=== PATIENT | male | born 1965 | race Caucasian/White ===

== ENCOUNTER 2018-02-06 11:46 | Emergency (ER) | payer BC ==
[2018-02-06] MEDS ORDERED: METHYLPREDNISOLONE 125 MG INJ ONE (11:59)
[2018-02-06] MEDS ORDERED: FAMOTIDINE 20 MG/2 ML VIAL IV ONE (12:00)
[2018-02-06 12:54] LABS: Absolute Lymphocytes (CBC) 1.4 K/uL (0.7-4.9); Absolute Monocytes 0.3 K/uL (0.1-1.3); Absolute Neutrophil 5.9 K/uL (1.8-8.0); Basophils % 0.4 % (0-1.3); Eosinophils % 0.8 % (0-4.4); Hematocrit 43.9 % (39.6-49.0); Lymphocytes % 18.1 % (15.3-44.8); MCH 28.4 pg (27.0-35.0); MCV 84.9 fL (80-100); MPV 7.9 fL (7.6-11.3); Monocytes % 3.5 % (3.3-12.3); RBC Red Blood Cell Count 5.17 M/uL (4.33-5.43)
[2018-02-06 13:11] LABS: Potassium 3.6 mEq/L (3.6-5.0)
--- NOTE | 2018-02-06 15:24 | EKG ---
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
--- NOTE | 2018-02-06 15:49 | ER ---
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 Transition of care: patient was not received from another setting of care. Onset: The symptoms/episode began/occurred acutely, 30 minute(s) ago. Anaphylaxis evaluation, the patient reports or I have noted the following symptoms which indicate a significant risk of anaphylaxis: angioedema hypotension lightheadedness shortness of breath tachypnea urticaria . The patient has been moved to a treatment room and the charge nurse or attending physician has been notified. Onset of symptoms was February 06, 2018. Initial Sepsis Screen: Does the patient meet any 2 criteria? No. Patient's initial sepsis screen is negative. Does the patient have a suspected source of infection? No. Patient's initial sepsis screen is negative. Care prior to arrival: Medication(s) given: Benadryl 50 mg pt reports taking prior to EMS arrival, EMS administered IM epinephrine CAR SUPERVISOR IV initiated. 18 GA, in the left wrist, Med neb given. Oxygen administered. 11:49 Method Of Arrival: EMS: [facility] sg 11:49 Acuity: DEWEY 2 sg Historical: - Allergies: 11:54 No Known Allergies; sg - Home Meds: 11:54 Propranolol Oral [Active]; Primidone Oral [Active]; sg - PMHx: 11:54 Hypertension; sg - Immunization history:: Adult Immunizations unknown. - Social history:: Smoking status: Patient/guardian denies using tobacco. Screenin:45 Abuse screen: Denies threats or abuse. Denies injuries from another. Nutritional sg screening: No deficits noted. Tuberculosis screening: No symptoms or risk factors identified. Never had TB. Fall Risk None identified. Assessment: 11:45 General: Appears in no apparent distress. comfortable, well groomed, well developed, sg well nourished, Behavior is calm, cooperative, appropriate for age. Pain: Denies pain. Neuro: Level of Consciousness is awake, alert, obeys commands, Oriented to person, place, time, situation, Supervisor Smoke Control are equal bilaterally Moves all extremities. Full function Gait is steady, Speech is normal, Facial symmetry appears normal, Denies weakness blurred vision dizziness, difficulty swallowing, numbness headache photophobia. Cardiovascular: Heart tones S1 S2 present Capillary refill is brisk in bilateral fingers Patient's skin is warm and dry. Chest pain is denied. Respiratory: Airway is patent Respiratory effort is even, unlabored, Respiratory pattern is regular, symmetrical, Breath sounds with wheezes. GI: No signs and/or symptoms were reported involving the gastrointestinal system. Abdomen is round non-distended, Bowel sounds present X 4 quads. Abd is soft and non tender X 4 quads. : No signs and/or symptoms were reported regarding the genitourinary system. EENT: No signs and/or symptoms were reported regarding the EENT system. Derm: Skin is pink, warm \T\ dry. Rash noted that is macular, itchy, red, urticaria, to face, chest, arms and legs. Musculoskeletal: No signs and/or symptoms reported regarding the musculoskeletal system. 11:50 Reassessment: stinger removed from pt R eyebrow, no other stingers observed at this sg time. 12:33 Reassessment: attempt to draw blood from current IV in Left wrist, unsuccessful. will sg attempt lab draw at this time. 13:25 Reassessment: Patient appears in no apparent distress at this time. Patient and/or sg family updated on plan of care and expected duration. Pain level reassessed. Patient is alert, oriented x 3, equal unlabored respirations, skin warm/dry/pink. pt reports feeling hungry at this time, updated on lab results and awaiting new orders, awaiting dispo orders at this time Patient states feeling better. Vital Signs: 11:50 Weight 113.4 kg (R); sg 11:52 BP 149 / 100; Pulse 54; Resp 21; Pulse Ox 93% on 100% Nebulizer Mask; Pain 7/10; sg 12:00 Temp 97.9; sg 12:10 BP 132 / 90; Pulse 59; Resp 20 S; Pulse Ox 91% on R/A; sg 12:15 Pulse Ox 96% on 3 lpm NC; sg 13:06 BP 158 / 92; Pulse 60 MON; Resp 20 S; Pulse Ox 96% on 3 lpm NC; sg 12:10 pt placed to O2 via NC at 3 lpm, 02 increased to 97 % sg ED Course: 11:49 Patient arrived in ED. sg 11:49 Omari Lewis MD is Attending Physician. gs 11:50 Noe Perez [facility]. jr8 11:50 Patient has correct armband on for positive identification. Bed in low position. Call sg light in reach. Side rails up X2. air sampling and monitoring on. Pulse ox on. NIBP on. Verbal reassurance given. blanket given Head of bed elevated. 11:52 Triage completed. sg 11:52 Arm band placed on. sg 11:55 Duy Sawyer, RN is Primary Nurse. sg 12:16 EKG done, by patient safety tech. reviewed by Noe POLLOCK. at1 16:25 No provider procedures requiring assistance completed. sg 16:28 IV discontinued, intact, bleeding controlled, No redness/swelling at site. Pressure sg dressing applied. Administered Medications: 11:55 Drug: NS 0.9% 1000 ml Route: IV; Rate: 1000 ml; Site: left wrist; sg 13:00 Follow up: Response: No adverse reaction; IV Status: Completed infusion; IV Intake: sg 990ml 12:08 Drug: Pepcid 20 mg Route: IVP; Site: left wrist; sg 13:00 Follow up: Response: No adverse reaction; Marked relief of symptoms sg 12:08 Drug: SOLU-Medrol 125 mg Route: IVP; Site: left wrist; sg 13:00 Follow up: Response: No adverse reaction; Marked relief of symptoms sg Intake: 13:00 IV: 990ml; Total: 990ml. sg Outcome: 15:49 Discharge ordered by . jr8 16:28 Discharged to home ambulatory, with family. sg 16:28 Condition: good 16:28 Discharge instructions given to patient, family, Instructed on discharge instructions, follow up and referral plans. medication usage, safety practices, Demonstrated understanding of instructions, follow-up care, medications, Prescriptions given X 2. 16:31 Patient left the ED. Signatures: Duy Sawyer RN RN sg Smirch, Shelby, RN RN Noe Perez PA PA jr8 gonzales, Amanda, ferryboat operator helper EKG Tat1 Omari Lewis MD MD gs Corrections: (The following items were deleted from the chart) 12:16 12:15 EKG done, by patient safety tech. reviewed by Omari Lewis MD at1 at1 13:24 13:06 BP 125 / 74; Pulse 60bpm; MonitorResp 20bpm; Spontaneous; Pulse Ox 96% 3 lpm sg Nasal Cannula; sg 19:27 16:28 Discharge instructions given to patient, family, Instructed on discharge sg instructions, follow up and referral plans. medication usage, safety practices, Demonstrated understanding of instructions, follow-up care, medications, Prescriptions given X 3, sg
--- NOTE | 2018-02-06 15:49 | EDPHYS ---
Physician Documentation [facility] Name: Frederick Galleogs Age: 52 yrs Sex: Male : 1965 Arrival Date: 02/06/2018 Time: 11:49 Bed 8 Private MD: ED Physician Omari Lewis HPI: 02/06 12:28 This 52 yrs old Male presents to ER via EMS with complaints of Allergic jr8 Reaction. 12:28 The patient presents with itching, rash, shortness of breath, stridor, wheezing. Onset: jr8 The symptoms/episode began/occurred acutely, today. Associated signs and symptoms: Pertinent positives: chest pain. Possible causes: bees. At home the patient or guardian has treated the symptoms with Benadryl. Severity of symptoms: At their worst the symptoms were severe in the emergency department the symptoms have improved markedly. The patient has not experienced similar symptoms in the past. The patient has not recently seen a physician. Patient brought in by EMS after being bit by bees. Had taken benadryl without relief. Patient was hypotensive with stridor, rash, and difficulty breathing on scene. Given IM epinephrine and SONDRA treatment. Patient upon arrival to ED feeling much better. No acute distress . Historical: - Allergies: 11:54 No Known Allergies; sg - Home Meds: 11:54 Propranolol Oral [Active]; Primidone Oral [Active]; sg - PMHx: 11:54 Hypertension; sg - Immunization history:: Adult Immunizations unknown. - Social history:: Smoking status: Patient/guardian denies using tobacco. ROS: 12:28 Eyes: Negative for injury, pain, redness, and discharge, ENT: Negative for injury, jr8 pain, and discharge, Neck: Negative for injury, pain, and swelling, Cardiovascular: Negative for chest pain, palpitations, and edema, Abdomen/GI: Negative for abdominal pain, nausea, vomiting, diarrhea, and constipation, Back: Negative for injury and pain, MS/Extremity: Negative for injury and deformity, Neuro: Negative for headache, weakness, numbness, tingling, and seizure. 12:28 Respiratory: Positive for cough, shortness of breath, wheezing. 12:28 Skin: Positive for rash. Exam: 12:28 Eyes: Pupils equal round and reactive to light, extra-ocular motions intact. Lids and jr8 lashes normal. Conjunctiva and sclera are non-icteric and not injected. Cornea within normal limits. Periorbital areas with no swelling, redness, or edema. ENT: Nares patent. No nasal discharge, no septal abnormalities noted. Tympanic membranes are normal and external auditory canals are clear. Oropharynx with no redness, swelling, or masses, exudates, or evidence of obstruction, uvula midline. Mucous membranes moist. Neck: Trachea midline, no thyromegaly or masses palpated, and no cervical lymphadenopathy. Supple, full range of motion without nuchal rigidity, or vertebral point tenderness. No Meningismus. Cardiovascular: Regular rate and rhythm with a normal S1 and S2. No gallops, murmurs, or rubs. Normal PMI, no JVD. No pulse deficits. Respiratory: Lungs have equal breath sounds bilaterally, clear to auscultation and percussion. No rales, rhonchi or wheezes noted. No increased work of breathing, no retractions or nasal flaring. Abdomen/GI: Soft, non-tender, with normal bowel sounds. No distension or tympany. No guarding or rebound. No evidence of tenderness throughout. Back: No spinal tenderness. No costovertebral tenderness. Full range of motion. MS/ Extremity: Pulses equal, no cyanosis. Neurovascular intact. Full, normal range of motion. Neuro: Awake and alert, GCS 15, oriented to person, place, time, and situation. Cranial nerves II-XII grossly intact. Motor strength 5/5 in all extremities. Sensory grossly intact. Cerebellar exam normal. Normal gait. 12:28 Skin: Appearance: Color: pale, Temperature: cool, Moisture: damp. Vital Signs: 11:50 Weight 113.4 kg (R); sg 11:52 BP 149 / 100; Pulse 54; Resp 21; Pulse Ox 93% on 100% Nebulizer Mask; Pain 7/10; sg 12:00 Temp 97.9; sg 12:10 BP 132 / 90; Pulse 59; Resp 20 S; Pulse Ox 91% on R/A; sg 12:15 Pulse Ox 96% on 3 lpm NC; sg 13:06 BP 158 / 92; Pulse 60 MON; Resp 20 S; Pulse Ox 96% on 3 lpm NC; sg 12:10 pt placed to O2 via NC at 3 lpm, 02 increased to 97 % sg MDM: 11:51 Patient medically screened. jr8 15:46 Data reviewed: vital signs, nurses notes, and as a result, I will discharge patient. jr8 Data interpreted: Pulse oximetry: on room air is 96 %. Interpretation: normal. Counseling: I had a detailed discussion with the patient and/or guardian regarding: the historical points, exam findings, and any diagnostic results supporting the discharge/admit diagnosis, the need for outpatient follow up, a family practitioner, to return to the emergency department if symptoms worsen or persist or if there are any questions or concerns that arise at home. Response to treatment: the patient's symptoms have resolved after treatment. 02/06 11:50 Order name: CBC with Diff; Complete Time: 13:19 jr8 02/06 11:50 Order name: Basic Metabolic Panel; Complete Time: 8 02/06 14:16 Order name: EKG Electrocardiogram EDMA 02/06 11:50 Order name: IV; Complete Time: 11:55 jr8 Administered Medications: 11:55 Drug: NS 0.9% 1000 ml Route: IV; Rate: 1000 ml; Site: left wrist; sg 13:00 Follow up: Response: No adverse reaction; IV Status: Completed infusion; IV Intake: sg 990ml 12:08 Drug: Pepcid 20 mg Route: IVP; Site: left wrist; sg 13:00 Follow up: Response: No adverse reaction; Marked relief of symptoms sg 12:08 Drug: SOLU-Medrol 125 mg Route: IVP; Site: left wrist; sg 13:00 Follow up: Response: No adverse reaction; Marked relief of symptoms sg Disposition: 02/06/18 15:49 Discharged to Home. Impression: Anaphylactic Reaction bee. - Condition is Stable. - Discharge Instructions: Anaphylactic Reaction, Epinephrine Injection. - Prescriptions for epinephrine 0.3 mg/0.3 mL Injection auto- injector - inject 0.3 milliliter by INTRAMUSCULAR route one time as needed for anaphylaxis; 1 Kit. Prednisone 20 mg Oral Tablet - take 2 tablet by ORAL route once daily for 5 days; 10 tablet. - Medication Reconciliation Form, Thank You Letter, Antibiotic Education, Prescription Opioid Use form. - Follow up: Private Physician; When: Tomorrow; Reason: Recheck today's complaints, Continuance of care, Re-evaluation by your physician. - Problem is new. - Symptoms have improved. Addendum: 02/10/2018 19:11 Co-signature as Attending Physician, Omari Lewis MD. g s Signatures: Dispatcher [employer] EDMS Duy Sawyer RN RN sg Elvie Foster RN RN ss Noe Perez, PHILL POLLOCK jr8 Omari Lewis MD MD gs Corrections: (The following items were deleted from the chart) 02/06 16:31 15:49 02/06/2018 15:49 Discharged to Home. Impression: Anaphylactic Reaction bee. ss Condition is Stable. Forms are Medication Reconciliation Form, Thank You Letter, Antibiotic Education, Prescription Opioid Use. Follow up: Private Physician; When: Tomorrow; Reason: Recheck today's complaints, Continuance of care, Re-evaluation by your physician. Problem is new. Symptoms have improved. jr8
== END 2018-02-06 16:31 | disposition home or self-care (01) ==
LOC: ER 11:46
DX: T63.441A Toxic effect of venom of bees, accidental (unintentional), initial encounter (principal); T78.2XXA Anaphylactic shock, unspecified, initial encounter; X58.XXXA Exposure to other specified factors, initial encounter
CPT/HCPCS: 36415; 80048; 85025; 93005; 96361; 96374; 96375; 99284; J2930

== ENCOUNTER 2021-05-21 12:01 | Emergency (ER) | payer BC ==
[2021-05-21] MEDS ORDERED: DIPHENHYDRAMINE 50 MG/ML VIAL ONE (12:25)
--- NOTE | 2021-05-21 14:25 | ER ---
Nurse's Notes [facility] Name: Frederick Gallegos Age: 56 yrs Sex: Male : 1965 Arrival Date: 05/21/2021 Time: 12:05 Bed 27 Private MD: Diagnosis: Insect allergy status;Anaphylactic reaction to wasp sting Presentation: 05/21 12:07 Chief complaint: Patient states: stung by 8 red wasps just prior to arrival. Pt has HX ss of allergies to bees. Pt is noted to be diaphoretic and wheezing upon arrival. Coronavirus screen: Client denies travel out of the [place] in the last 14 days. Ebola Screen: Patient denies exposure to infectious person. Patient denies travel to an Ebola-affected area in the 21 days before illness onset. Initial Sepsis Screen: Does the patient meet any 2 criteria? No. Patient's initial sepsis screen is negative. Does the patient have a suspected source of infection? No. Patient's initial sepsis screen is negative. Risk Assessment: Do you want to hurt yourself or someone else? Patient reports no desire to harm self or others. Onset of symptoms was May 21, 2021. 12:07 Method Of Arrival: Wheelchair ss 12:07 Acuity: DEWEY 1 ss Triage Assessment: 12:00 General: Appears distressed, uncomfortable, Behavior is anxious, drowsy. Pain: Denies zb pain. Neuro: Level of Consciousness is awake, alert, obeys commands, Oriented to Appropriate for age. Cardiovascular:. Respiratory: Reports shortness of breath Airway is patent Respiratory pattern is tachypnea Breath sounds with wheezes bilaterally. the patient has severe shortness of breath Parent/caregiver reports the patient having shortness of breath. Derm: Skin is diaphoretic. Musculoskeletal: Range of motion: intact in all extremities. Historical: - Allergies: 12:09 Bees; ss - PMHx: 12:09 Hypertension; ss - Immunization history:: Adult Immunizations up to date. - Social history:: Smoking status: Patient denies any tobacco usage or history of. Screenin:10 Abuse screen: Denies threats or abuse. Denies injuries from another. Nutritional ss screening: No deficits noted. Tuberculosis screening: Never had TB. Fall Risk None identified. Assessment: 12:46 Reassessment: See triage assessment. zb 13:08 Reassessment: patient states that he if feeling a lot better. patient is no longer zb diaphoretic Patient states feeling better. Patient states symptoms have improved. 13:52 Reassessment: Patient appears in no apparent distress at this time. Patient and/or zb family updated on plan of care and expected duration. Pain level reassessed. Patient is alert, oriented x 3, equal unlabored respirations, skin warm/dry/pink. family remains at bedside. IV fluid infusing. 14:43 Reassessment: Patient appears in no apparent distress at this time. Patient and/or zb family updated on plan of care and expected duration. Pain level reassessed. Patient is alert, oriented x 3, equal unlabored respirations, skin warm/dry/pink. family remains at bedside. 14:57 Reassessment: patient ambulated out with no c/o at this time. gait even and zb steady. d/c instruction received. PVU and . Patient denies pain at this time. Patient states feeling better. Patient states symptoms have improved. Vital Signs: 12:07 BP 79 / 68; Pulse 67; Resp 19; Temp 98.2(TE); Pulse Ox 86% on R/A; Weight 88.45 kg; ss Height 5 ft. 8 in. (172.72 cm); 12:11 BP 139 / 86; ss 12:47 BP 153 / 93; Pulse 54; Resp 22; Pulse Ox 100% on Nebulizer Mask; zb 13:53 BP 152 / 94; Pulse 58; Resp 19; Pulse Ox 100% on 2 lpm NC; zb 14:43 BP 144 / 91; Pulse 64; Resp 16; Pulse Ox 100% on R/A; zb 12:07 Body Mass Index 29.65 (88.45 kg, 172.72 cm) ED Course: 12:02 Inserted saline lock: 20 gauge in right antecubital area, using aseptic technique. zb 12:05 Patient arrived in ED. em1 12:07 Brandy George FNP-C is [facility]. kb 12:07 Jamir Delgado MD is Attending Physician. kb 12:09 Triage completed. ss 12:09 Arm band placed on right wrist. ss 12:10 Patient has correct armband on for positive identification. Bed in low position. Call ss light in reach. environmental monitoring technician on. Pulse ox on. NIBP on. 12:43 Tatum Rodriguez, RN is Primary Nurse. zb 14:58 No provider procedures requiring assistance completed. IV discontinued, intact, zb bleeding controlled, No redness/swelling at site. Pressure dressing applied. Administered Medications: 12:00 Drug: Benadryl (diphenhydrAMINE) 50 mg Route: IVP; Site: right antecubital; zb 14:42 Follow up: Response: No adverse reaction; Marked relief of symptoms zb 14:42 Follow up: Response: No adverse reaction; No change in condition zb 12:02 Drug: NS 0.9% 1000 ml Route: IV; Rate: 1000 ml; Site: right antecubital; zb 14:43 Follow up: Response: No adverse reaction; IV Status: Completed infusion; IV Intake: zb 1000ml 12:02 Drug: SOLU-Medrol (methylPrednisoLONE) 125 mg Route: IVP; Site: right antecubital; zb 14:42 Follow up: Response: No adverse reaction; Marked relief of symptoms zb 12:02 Drug: EPINEPHrine 1mg/mL 1:1,000 0.3 ml Route: Sub-Q; Site: right upper arm; ss 14:42 Follow up: Response: No adverse reaction; No change in condition zb 12:02 Drug: DuoNeb (albuterol 2.5 mg, ipratropium 0.5 mg) (3:1) (2.5 mg - 0.5 mg) 3 ml Route: ss Nebulizer; 14:43 Follow up: Response: No adverse reaction; Marked relief of symptoms zb 12:08 Drug: Pepcid (famotidine) 20 mg Route: IVP; Site: right antecubital; zb 14:43 Follow up: Response: No adverse reaction; Marked relief of symptoms zb 14:50 Drug: predniSONE 40 mg Route: PO; zb 14:57 Follow up: Response: Medication administered at discharge. zb Intake: 14:43 IV: 1000ml; Total: 1000ml. zb Outcome: 14:24 Discharge ordered by . mayte 14:58 Discharged to home ambulatory, with family. zb 14:58 Condition: stable 14:58 Discharge instructions given to patient, Instructed on discharge instructions, follow up and referral plans. medication usage, Demonstrated understanding of instructions, follow-up care, medications, Prescriptions given X 3. 14:59 Patient left the ED. zb Signatures: Brandy George FNP-C FNP-Addy Lozano em1 Elvie Foster RN RN ss Brown, Zipporah, RN RN zb Corrections: (The following items were deleted from the chart) 13:10 12:00 Respiratory: Reports shortness of breath Airway is patent Respiratory pattern is zb tachypnea Breath sounds with wheezes bilaterally. the patient has severe shortness of breath Parent/caregiver reports the patient having shortness of breath zb
--- NOTE | 2021-05-21 14:25 | EDPHYS ---
Physician Documentation [facility] Name: Frederick Gallegos Age: 56 yrs Sex: Male : 1965 Arrival Date: 05/21/2021 Time: 12:05 Bed 27 Private MD: ED Physician Jamir Delgado HPI: 05/21 14:34 This 56 yrs old Male presents to ER via Wheelchair with complaints of kb allergic reaction to wasp. 14:34 The patient presents with shortness of breath. Onset: The symptoms/episode kb began/occurred just prior to arrival. Associated signs and symptoms: The patient has no apparent associated signs or symptoms. Possible causes: wasp. At home the patient or guardian has treated the symptoms with nothing. Severity of symptoms: At their worst the symptoms were moderate in the emergency department the symptoms are unchanged. The patient has experienced a previous episode. The patient has not recently seen a physician. 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 Reports shortness of breath. Historical: - Allergies: 12:09 Bees; ss - PMHx: 12:09 Hypertension; ss - Immunization history:: Adult Immunizations up to date. - Social history:: Smoking status: Patient denies any tobacco usage or history of. ROS: 14:38 Constitutional: Negative for fever, chills, and weight loss. kb 14:38 Respiratory: Positive for shortness of breath, Negative for cough, dyspnea on exertion, hemoptysis, orthopnea, pleurisy, sputum production, wheezing. 14:38 Allergy/Immunology: Positive for SOB after wasp sting, Allergy/Immunology: Positive for SOB after wasp sting. 14:38 All other systems are negative. Exam: 14:38 Constitutional: This is a well developed, well nourished patient who is awake, alert, kb and in no acute distress. Head/Face: Normocephalic, atraumatic. ENT: Moist Mucous membranes Cardiovascular: Regular rate and rhythm with a normal S1 and S2. No gallops, murmurs, or rubs. No pulse deficits. Abdomen/GI: Soft, non-tender. No distention MS/ Extremity: Pulses equal, no cyanosis. Neurovascular intact. Full, normal range of motion. Neuro: Awake and alert, GCS 15, oriented to person, place, time, and situation. Moves all extremities. Normal gait. Psych: Awake, alert, with orientation to person, place and time. Behavior, mood, and affect are within normal limits. 14:38 Respiratory: the patient does not display signs of respiratory distress, Respirations: normal, Breath sounds: wheezing: expiratory that is moderate, is scattered. 14:38 Skin: 14:38 Skin: Appearance: Color: pale. Vital Signs: 12:07 BP 79 / 68; Pulse 67; Resp 19; Temp 98.2(TE); Pulse Ox 86% on R/A; Weight 88.45 kg; ss Height 5 ft. 8 in. (172.72 cm); 12:11 BP 139 / 86; ss 12:47 BP 153 / 93; Pulse 54; Resp 22; Pulse Ox 100% on Nebulizer Mask; zb 13:53 BP 152 / 94; Pulse 58; Resp 19; Pulse Ox 100% on 2 lpm NC; zb 14:43 BP 144 / 91; Pulse 64; Resp 16; Pulse Ox 100% on R/A; zb 12:07 Body Mass Index 29.65 (88.45 kg, 172.72 cm) ss MDM: 12:07 Patient medically screened. kb 14:36 Data reviewed: vital signs, nurses notes. Data interpreted: Pulse oximetry: on room air kb is 100 %. Interpretation: normal. Counseling: I had a detailed discussion with the patient and/or guardian regarding: the historical points, exam findings, and any diagnostic results supporting the discharge/admit diagnosis, the need for outpatient follow up, a family practitioner, to return to the emergency department if symptoms worsen or persist or if there are any questions or concerns that arise at home. ED course: When pt arrived he was diaphoretic, pale and wheezing. IV started and medications ordered/administered within minutes of arrival. Pt's color improved, wheezing resolved, diaphoresis resolved after medications. Pt reports he is feeling better now and wants to go home. Pt and spouse happy with care received. . 05/21 12:08 Order name: IV Start; Complete Time: 12:10 kb Administered Medications: 12:00 Drug: Benadryl (diphenhydrAMINE) 50 mg Route: IVP; Site: right antecubital; zb 14:42 Follow up: Response: No adverse reaction; Marked relief of symptoms zb 14:42 Follow up: Response: No adverse reaction; No change in condition zb 12:02 Drug: NS 0.9% 1000 ml Route: IV; Rate: 1000 ml; Site: right antecubital; zb 14:43 Follow up: Response: No adverse reaction; IV Status: Completed infusion; IV Intake: zb 1000ml 12:02 Drug: SOLU-Medrol (methylPrednisoLONE) 125 mg Route: IVP; Site: right antecubital; zb 14:42 Follow up: Response: No adverse reaction; Marked relief of symptoms zb 12:02 Drug: EPINEPHrine 1mg/mL 1:1,000 0.3 ml Route: Sub-Q; Site: right upper arm; ss 14:42 Follow up: Response: No adverse reaction; No change in condition zb 12:02 Drug: DuoNeb (albuterol 2.5 mg, ipratropium 0.5 mg) (3:1) (2.5 mg - 0.5 mg) 3 ml Route: ss Nebulizer; 14:43 Follow up: Response: No adverse reaction; Marked relief of symptoms zb 12:08 Drug: Pepcid (famotidine) 20 mg Route: IVP; Site: right antecubital; zb 14:43 Follow up: Response: No adverse reaction; Marked relief of symptoms zb 14:50 Drug: predniSONE 40 mg Route: PO; zb 14:57 Follow up: Response: Medication administered at discharge. zb Disposition: 17:09 Co-signature as Attending Physician, Jamir Delgado MD I agree with the assessment and kdr plan of care. Disposition Summary: 05/21/21 14:24 Discharge Ordered Location: Home kb Condition: Stable kb Diagnosis - Insect allergy status kb - Anaphylactic reaction to wasp sting kb Followup: kb - With: Emergency Department - When: As needed - Reason: Worsening of condition Followup: kb - With: Private Physician - When: 2 - 3 days - Reason: Recheck today's complaints, Continuance of care, Re-evaluation by your physician Discharge Instructions: - Discharge Summary Sheet kb - Bee, Wasp, or Hornet Sting, Adult kb - Anaphylactic Reaction, Adult, [place]-[id number] kb Forms: - Medication Reconciliation Form kb - Thank You Letter kb - Antibiotic Education kb - Prescription Opioid Use kb Prescriptions: - EpiPen 0.3 mg/0.3 mL Injection auto-injector - inject 0.3 milliliter by INTRAMUSCULAR route one time As needed as needed for kb anaphylaxis; 1 Cartridge; Refills: 0, Product Selection Permitted - Pepcid 20 mg Oral Tablet - take 1 tablet by ORAL route every 12 hours for 5 days; 10 tablet; Refills: 0, kb Product Selection Permitted - Prednisone 20 mg Oral Tablet - take 1 tablet by ORAL route once daily for 5 days; 5 tablet; Refills: 0, kb Product Selection Permitted Signatures: Brandy George FNP-C FNP-Ckb Rittger, Kevin, MD MD kdr Smirch, Shelby, RN RN ss Tatum Rodriguez RN RN zb
[2021-05-21 15:04] VITALS: TEMP 98.2
[2021-05-21 15:07] VITALS: O2SAT 100
[2021-05-21 15:11] VITALS: BP 144/91
[2021-05-21] MEDS ORDERED: predniSONE 20 MG TAB ONE (15:11)
== END 2021-05-21 14:59 | disposition home or self-care (01) ==
LOC: ER 12:01
DX: T63.461A Toxic effect of venom of wasps, accidental (unintentional), initial encounter (principal); T78.2XXA Anaphylactic shock, unspecified, initial encounter; Z91.038 Other insect allergy status; I10 Essential (primary) hypertension; Z91.030 Bee allergy status
CPT/HCPCS: 96361; 96375; 96372; 96374; 99291; 99292; J1200; J7512

== ENCOUNTER 2022-09-16 14:45 | Observation (INO) | payer BC ==
--- OUTSIDE RECORDS SUMMARY | 2022-09-16 14:50 | XMS REPORT | Continuity of Care Document ---
:1965 Author Organization [facility] t Address [address] [place] [address] Care Team Providers Name Role Phone Félix Sanchez Attending Clinician Unavailable Steve Caro Attending Clinician Steve Caro Attending Clinician Unavailable Problems Condition Condition Condition Status Onset Resolution Last Treating Co mments Source Name Details Category Date Date Treatment Clinician Date R25.1 R25.1 Diagnosis Active 2015-102016-08-24 Mem oria Active 0-27 10:31:00 l 08/05/2016 00:00: Arcadio dominguez [address] Essential Essential Problem Active 2015-102022-09-04 Memoria hypertensi hypertensi 0-25 11:37:43 l on on 00:00: Owen (disorder) (disorder) 00 Active 08/03/2016 Problem 09/04/2022 [facility] Hyperlipid Hyperlipi Problem Active 2022-09-04 Memoria emia demia 11:37:43 l (disorder) (disorder) [facility] Active Problem 09/04/2022 [facility] TREMOR, TREMOR, Diagnosis Active 2016-08-24 Memoria UNSPECIFIE UNSPECIFIE 10:31:00 l D D Active [facility] Mixed Mixed Problem Common hyperlipid hyperlipid Sp felicia emia emia - [facility] Essential Tremor, Problem Commo n tremor essential [facility] Anxiety Anxiety Problem Common [facility] [id number] Asthma, Problem Commo n unspecifie Spirit d asthma - severity, St unspecifie [facility] d whether Medical complicate Center d, unspecifie d whether persistent [id number] Hypertensi Problem Com mon on, Spirit unspecifie - [facility]I d type [facility] [id number] Renal Problem Common insufficie Spirit ncy [facility] [id number] Adult BMI Problem Com mon 34.0-34.9 Spirit kg/sq m - [facility] [id number] Kidney Problem Common stone Spirit [facility] [id number] Prediabete Problem Co mmon s [facility] [id number] History of Problem Co mmon colonic Spirit polyps [facility] Chronic Stage 3a Problem Common kidney chronic Spirit disease kidney - stage 3A disease [facility] [id number] GERD Problem Common without [facility] esophagiti - s [facility] Allergic Seasonal Problem Commo n rhinitis and Spirit perennial - allergic [facility] [id number] Gastroesop Problem Co mmon hageal Spirit reflux - CHI disease [facility] esophagiti Medica l s, Center unspecifie d whether hemorrhage Tremor Tremor Problem Resolve 2022-03-05 2022-03-05 Memoria (finding) (finding) d 07-06 04:38:00 04:38:00 l Resolved 00:00: [place] 07/06/2016 00 Problem 03/05/2022 [facility] Allergies, Adverse Reactions, Alerts This patient has no known allergies or adverse reactions. Social History Social Habit Start Date Stop Date Quantity Comments Source History of Tobacco Common Spirit - Use [facility] Social History 2022-09-01 2022[facility]09[facility]01 [facility]:22:20 15:22:20 Smoking Status Start Date Stop Date Source Tobacco smoking status [facility] Medications Ordered Filled Start Stop Current Ordering Indication Dosage Frequency Signature Comments Components Source Medication Medication Date Date Medication? 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, Weight EPINEPHrine EPINEPHrine No EPINEPHrin (Anaphylaxi (Anaphylaxi 8-16 e s) 1 MG/ML s) 1 MG/ML 00:00: (Anaphylax 00 is) 1 MG/ML EPINEPHrine EPINEPHrine No EPINEPHrin (Anaphylaxi (Anaphylaxi 8-16 e s) 1 MG/ML s) 1 MG/ML 00:00: (Anaphylax 00 is) 1 MG/ML EPINEPHrine EPINEPHrine No EPINEPHrin (Anaphylaxi (Anaphylaxi 8-16 e s) 1 MG/ML s) 1 MG/ML 00:00: (Anaphylax 00 is) 1 MG/ML hydrochloro 20180 Yes PO, Daily, Memoria thiazide 2-26 0 l 18:53: Refill(s) [place] 00 Inderal LA Yes 60 mg = 1 Me moria 60 mg oral 2- cap, PO, l capsule, 18:53: Daily, 0 Hillary nn extended 00 Refill(s) release Propranolol Propranolol No 1{capsu QD Propranolo HCl ER 80 HCl ER 80 le} l HCl ER MG MG 80 MG Propranolol Propranolol No Propranolo HCl ER 80 HCl ER 80 l HCl ER MG MG 80 MG Primidone Primidone No 2{table BID Primidone 50 MG 50 MG t} 50 MG Hydrochloro Hydrochloro No 1{capsu QD Hydrochlor thiazide thiazide le_in_t othiazide 12.5 MG 12.5 MG he_morn 12.5 MG ing} hydroCHLORO hydroCHLORO No hydroCHLOR thiazide thiazide Othiazide 12.5 MG 12.5 MG 12.5 MG Propranolol Propranolol No Propranolo HCl ER 80 HCl ER 80 l HCl ER MG MG 80 MG Propranolol Propranolol No 1{capsu QD Propranolo HCl ER 80 HCl ER 80 le} l HCl ER MG MG 80 MG Primidone Primidone No 2{table BID Primidone 50 MG 50 MG t} 50 MG hydroCHLORO hydroCHLORO No hydroCHLOR thiazide thiazide Othiazide 12.5 MG 12.5 MG 12.5 MG Hydrochloro Hydrochloro No 1{capsu QD Hydrochlor thiazide thiazide le_in_t othiazide 12.5 MG 12.5 MG he_morn 12.5 MG ing} Propranolol Propranolol No Propranolo HCl ER 80 HCl ER 80 l HCl ER MG MG 80 MG Propranolol Propranolol No 1{capsu QD Propranolo HCl ER 80 HCl ER 80 le} l HCl ER MG MG 80 MG hydroCHLORO hydroCHLORO No hydroCHLOR thiazide thiazide Othiazide 12.5 MG 12.5 MG 12.5 MG Primidone Primidone No 2{table BID Primidone 50 MG 50 MG t} 50 MG Hydrochloro Hydrochloro No 1{capsu QD Hydrochlor thiazide thiazide le_in_t othiazide 12.5 MG 12.5 MG he_morn 12.5 MG ing} Vital Signs Vital Name Observation Time Observation Value Comments Source height 2022-09-13 14:00:00 69 [in_i] [facility] weight 2022-09-13 14:00:00 224.0 [lb_av] [facility] temperature 2022-09-13 14:00:00 97.4 [degF] [facility] bmi 2022-09-13 14:00:00 33.08 kg/m2 [facility] oximetry 2022-09-13 14:00:00 98 % [facility] respiratory rate 2022-09-13 14:00:00 18 /min Comm on [facility] blood pressure 2022-09-13 14:00:00 134 mm[Hg] Common [facility] - systolic [facility] blood pressure 2022-09-13 14:00:00 72 mm[Hg] [facility] - diastolic [facility] height 2022-04-21 13:00:00 69 [in_i] [facility] weight 2022-04-21 13:00:00 218.6 [lb_av] Common [facility] - [facility] temperature 2022-04-21 13:00:00 98.1 [degF] Common [facility] bmi 2022-04-21 13:00:00 32.28 kg/m2 [facility] 2022-04-21 13:00:00 97 % [facility] 2022-04-21 13:00:00 18 /min Comm on Spirit - [facility] blood pressure 2022-04-21 13:00:00 135 mm[Hg] Common [facility] - systolic [facility] blood pressure 2022-04-21 13:00:00 72 mm[Hg] Common [facility] - diastolic [facility] Systolic (mm Hg) 2022-09-01 15:01:00 Mohinder rial [place] Diastolic (mm Hg) 2022-09-01 15:01:00 Mem orial [place] Heart Rate 2022-09-01 15:01:00 [facility] Height 2022-09-01 15:01:00 5 [ft_i] [facility] Weight 2022-09-01 15:01:00 [facility] BMI Calculated 2022-09-01 15:01:00 Memori al [place] Systolic (mm Hg) 2022-03-02 20:36:00 Mohinder rial [place] Diastolic (mm Hg) 2022-03-02 20:36:00 Mem orial [place] Heart Rate 2022-03-02 20:36:00 [facility] Respitory Rate 2022-03-02 20:36:00 Memori al [place] Height 2022-03-02 20:36:00 172.72 cm [facility] Weight 2022-03-02 20:36:00 [facility] [place] BMI Calculated 2022-03-02 20:36:00 Memori al [place] Systolic (mm Hg) 2021-08-31 16:06:00 Mohinder rial [place] Diastolic (mm Hg) 2021-08-31 16:06:00 Mem orial [place] Heart Rate 2021-08-31 16:06:00 [facility] [place] Respitory Rate 2021-08-31 16:06:00 Memori al [place] Height 2021-08-31 16:06:00 167.64 cm [facility] Weight 2021-08-31 16:06:00 [facility] [place] BMI Calculated 2021-08-31 16:06:00 Memori al [place] Systolic (mm Hg) 2019-03-28 18:58:00 Mohinder rial [place] Diastolic (mm Hg) 2019-03-28 18:58:00 Mem orial [place] Respitory Rate 2019-03-28 18:58:00 Memori al [place] Heart Rate 2019-03-28 18:58:00 [facility] [place] Weight 2019-03-28 18:58:00 [facility] [place] Height 2019-03-28 18:58:00 175.26 cm [facility] [place] BMI Calculated 2019-03-28 18:58:00 Memori al [place] Height 2018-09-27 20:24:00 175.26 cm [facility] [place] Systolic (mm Hg) 2018-09-27 20:24:00 Mohinder rial [place] Diastolic (mm Hg) 2018-09-27 20:24:00 Mem orial [place] Heart Rate 2018-09-27 20:24:00 [facility] [place] Weight 2018-09-27 20:24:00 [facility] BMI Calculated 2018-09-27 20:24:00 Memori al [place] Procedures This patient has no known procedures. Encounters Start End Encounter Admission Attending Care Care Encounter Source Date/Time Date/Time Type Type Clinicians Facility Department ID 2022-09-09 [facility] [id number] Common 13:16:03 [facility] [id number] Spirit - [facility] 2022-04-[address] M[address] [facility] [id number] Common 13:03:02 [facility] [id number] Spirit - [facility] 2023-03-01 2023-03-01 Outpatient MHIE MHIE [id number] Memoria 15:30:00 15:30:00 09 rashawn YanceyOwen 2022-09-13 2022-09-13 OFFICE [facility] [id number] Co mmon 00:00:00 00:00:00 VISIT Spirit [facility] PT - [facility] LEVEL 4 [facility] 2022-09-07 2022-09-07 (TEL) [facility] [id number] Co mmon 00:00:00 00:00:00 Spirit - [facility] 2022-09-01 2022-09-02 Outpatient MHIE MNA [id number] Memoria 15:00:00 05:59:59 Neurology 08 rashawn Weaver 2022-09-01 2022-09-01 Outpatient MAYDA CaroSCHER MISCHER [id number] 09:00:00 23:59:59 Steve Natalie Dorado 2022-09-01 2022-09-01 Ambulatory MHIE MNA [id number] Memoria 20:00:00 20:00:00 Pre-Reg Neurology 07 rashawn Weaver 2022-09-01 2022-09-01 Outpatient MHIE MHIE [id number] Memoria 14:00:00 14:00:00 07 rashawn Weaver 2022-09-01 2022-09-01 Outpatient MAYDA CaroSCHER MISCHER [id number] 14:00:00 14:00:00 Steve Arianna Dorado 2022-09-01 2022-09-01 Outpatient MHIE MHIE [id number] Memoria 09:00:00 09:00:00 08 rashawn Weaver 2022-04-21 2022-04-21 PREV VISIT STLMLC STLC [id number] Common 00:00:00 00:00:00 EST AGE Juan Ramon 40-64 - [facility] 2022-03-02 2022-03-03 Outpatient nullFlavo MNA [id number] Memoria 20:30:00 04:59:59 r Neurology 06 rashawn Weaver 2022-03-02 2022-03-02 Outpatient SELWYN CaroMSSCHER MISCHER [id number] 15:30:00 23:59:59 Steve Jered Dorado 2022-03-02 2022-03-02 Outpatient MHIE MHIE [id number] Memoria 15:30:00 15:30:00 06 rashawn Weaver 2021-08-31 2021-09-01 Outpatient nullFlavo MNA [id number] Memoria 16:15:00 05:59:59 r Neurology 05 rashawn Weaver 2021-08-31 2021-08-31 Outpatient SELWYN CaroMISCHER MHMISCHER [id number] 10:15:00 23:59:59 Steve 05 Estrada 2021-08-31 2021-08-31 Outpatient MHIE MHIE [id number] Memoria 10:15:00 10:15:00 05 rashawn Weaver 2019-12-26 2019-12-26 Ambulatory nullFlavo MNA [id number] Memoria 18:00:00 18:00:00 Pre-Reg r Neurology 04 l Nicko Weaver 2019-12-26 2019-12-26 Outpatient MHIE MHIE [id number] Memoria 13:00:00 13:00:00 04 rashawn Weaver 2019-12-26 2019-12-26 Outpatient MAYDA CaroSCHER MHMISCHER [id number] 13:00:00 13:00:00 Steve 04 Estrada 2019-03-28 2019-03-29 Outpatient nullFlavo MNA [id number] Memoria 19:00:00 04:59:59 r Neurology 03 rashawn Weaver 2019-03-28 2019-03-28 Outpatient MAYDA CaroSCHER CONSTANCESCHER [id number] 14:00:00 23:59:59 Steve 03 Estrada 2019-03-28 2019-03-28 Outpatient MHIE MHIE [id number] Memoria 14:00:00 14:00:00 03 rashawn Weaver 2018-09-27 2018-09-28 Outpatient nullFlavo MNA [id number] Memoria 20:15:00 05:59:59 r Neurology 02 l Nicko Weaver 2018-09-27 2018-09-27 Outpatient MAYDA CaroSCHER MHMISCHER [id number] 14:15:00 23:59:59 Steve 02 Estrada 2018-09-27 2018-09-27 Outpatient MHIE MHIE [id number] Memoria 14:15:00 14:15:00 02 rashawn Weaver 2018-06-07 2018-06-07 Outpatient MHIE MHIE [id number] Memoria 14:15:00 14:15:00 01 rashawn Weaver 2018-01-31 2018-01-31 Outpatient MHIE MHIE [id number] Memoria 14:15:00 14:15:00 00 rashawn Weaver 2016-08-24 2016-08-25 Outpatient nullFlavo [facility] [id number] Memoria 16:18:00 05:59:[address] [facility] 2016-08-24 2016-08-24 Outpatient Vania [facility] [id number] 10:18:00 23:59:00 Steve Ball 00 Results This patient has no known results.
[2022-09-16] MEDS ORDERED: PROMETHAZINE INJ 25 MG/ML AMP ONE (15:07)
[2022-09-16 15:19] LABS: Absolute Lymphocytes (CBC) 2.2 K/uL (0.7-4.9); Hematocrit 47.9 % (39.6-49.0); Lymphocytes % 30.5 % (15.3-44.8); MPV 7.3 fL (7.6-11.3); RBC Red Blood Cell Count 5.56 M/uL (4.33-5.43)
[2022-09-16] MEDS ORDERED: NA CHLORIDE 0.9% 500 ML ONE (15:20)
[2022-09-16 15:24] LABS: Protime INR 0.96
--- NOTE | 2022-09-16 15:33 | RAD REPORT ---
EXAM DESCRIPTION: CT - Ct Stroke Brain Wo Cont - 09/16/2022 3:20 pm CLINICAL HISTORY: dizziness/diaphoresis, Headache, CVA symptomology COMPARISON: No comparisons TECHNIQUE: All CT scans are performed using dose optimization technique as appropriate and may inclu de automated exposure control or mA/KV adjustment according to patient size. FINDINGS: No intracranial hemorrhage, hydrocephalus or extra-axial fluid collection.Mild generalized brain atrophy is present with mild periventricular and deep white matter chronic microvascular ische mitali changes.No areas of brain edema or evidence of midline shift. The paranasal sinuses and mastoids are clear. The calvarium is intact. IMPRESSION: No acute intracranial abnormality. If there is continued clinical concern for CVA, MR imaging of the brain would be recommended. The findings were discussed with PHILL Figueroa on 09/16/22 at 3:29 p.m. by telephone.
[2022-09-16 15:37] LABS: Albumin 3.7 g/dL (3.4-5.0); Bilirubin Direct 0.1 mg/dL (0-0.2); Bilirubin Total 0.4 mg/dL (0.2-1.0); Magnesium 2.2 mg/dL (1.6-2.4); Potassium 3.8 mmol/L (3.5-5.1); Protein, Total 7.8 g/dL (6.4-8.2); Troponin High Sensitivity 5.4 pg/mL (<58.9)
[2022-09-16] MEDS ORDERED: Acetylcysteine 6000mg/30mL IV ONE (15:48)
[2022-09-16] MEDS ORDERED: ASPIRIN 81 MG CHEWABLE TABLET ONE (15:48)
[2022-09-16] MEDS ORDERED: FOLIC ACID 5 MG/ML VIAL ONE (15:49)
--- NOTE | 2022-09-16 16:14 | RAD REPORT ---
EXAM DESCRIPTION: RAD - Chest Single View - 09/16/2022 4:03 pm CLINICAL HISTORY: CHEST PAIN Chest pain. COMPARISON: No comparisons FINDINGS: Portable technique limits examination quality. Mild interstitial pulmonary edema. The heart is normal in size. No displaced fractures.
[2022-09-16 16:24] LABS: SARS-COV-2 RT PCR NEGATIVE (NEGATIVE)
--- NOTE | 2022-09-16 16:26 | RAD REPORT ---
EXAM DESCRIPTION: CT - Head angio - 09/16/2022 4:04 pm CLINICAL HISTORY: diaphoresis Headache, drowsiness, CVA symptomology COMPARISON: Ct Stroke Brain Wo Cont dated 09/16/2022 TECHNIQUE: CT angiography of the head was performed with MIPs. All CT scans are performed using dose optimization technique as appropriate and may include automated exposure control or mA/KV adjustment according to patient size. FINDINGS: No evidence of aneurysm is detected. No flow-limiting stenosis or vascular malformation id entified. No large vessel occlusion seen. Antegrade flow is seen in the vertebral arteries. The vertebral arteries are codominant. The visualized dural venous sinuses are patent. IMPRESSION: No significant flow abnormality is detected.
--- NOTE | 2022-09-16 16:29 | RAD REPORT ---
EXAM DESCRIPTION: CT - Neck Angio - 09/16/2022 4:04 pm CLINICAL HISTORY: dizzy, diaphoretic Headache, dizziness, drowsiness and CVA symptomology COMPARISON: No comparisons TECHNIQUE: CT angiography of the neck vessels was performed with MIPs. All CT scans are performed using dose optimization technique as appropriate and may include automated exposure control or mA/KV adjustment according to patient size. FINDINGS: A left aortic arch is identified with normal three vessel configuration of the great vesse ls. No significant flow abnormality is seen of the common carotid bilaterally. Mild soft plaque is seen in both carotid bulbs. This results in all stenosis of less than 50% bilater ally based on NASCET criteria. Mild narrowing is seen involving the right vertebral artery intracranially. No significant vertebroba silar occlusion or stenosis. IMPRESSION: Mild soft plaquing in both carotid bulbs without a significant stenosis evident.
--- NOTE | 2022-09-16 16:47 | ER ---
Nurse's Notes [facility] Name: Frederick Gallegos Age: 57 yrs Sex: Male : 1965 Arrival Date: 09/16/2022 Time: 14:45 Bed 16 Private MD: Diagnosis: Other peripheral vertigo;Essential (primary) hypertension;Bradycardia, unspecified Presentation: 09/16 14:58 Chief complaint: Patient states: he was bending over a lot to pick stuff up and started ap3 getting dizzy and light headed. patient presents to the ER diaphoretic, with continued lightheadedness and nausea. Coronavirus screen: At this time, the client does not indicate any symptoms associated with coronavirus-19. Ebola Screen: No symptoms or risks identified at this time. Initial Sepsis Screen: Does the patient meet any 2 criteria? No. Patient's initial sepsis screen is negative. Does the patient have a suspected source of infection? No. Patient's initial sepsis screen is negative. Risk Assessment: Do you want to hurt yourself or someone else? Patient reports no desire to harm self or others. Onset of symptoms was September 16, 2022. 14:58 Method Of Arrival: Wheelchair ap3 14:58 Acuity: DEWEY 2 ap3 Triage Assessment: 15:01 General: Appears ill, Behavior is calm, cooperative. Pain: Denies pain. Neuro: Level of ap3 Consciousness is awake, alert, obeys commands, Oriented to person, place, time, situation, Weakness Speech is normal. Respiratory: Airway is patent Respiratory effort is even, unlabored. GI: Reports nausea. Derm: Skin is diaphoretic. Historical: - Allergies: 15:00 Bees; ap3 - PMHx: 15:00 Hypertension; nonessential tremors; ap3 - Immunization history:: Client reports having NOT received the Covid vaccine. - Social history:: Smoking status: Patient denies any tobacco usage or history of. Screenin:01 Abuse screen: Denies threats or abuse. Nutritional screening: No deficits noted. ap3 Tuberculosis screening: No symptoms or risk factors identified. 18:00 Fall Risk None identified. ko1 Assessment: 15:00 General: Appears distressed, ill, Behavior is cooperative, appropriate for age, ko1 anxious. Pain: Denies pain. Neuro: No deficits noted. Cardiovascular: Rhythm is sinus bradycardia. Cardiovascular: Parent/caregiver reports patient has had lightheadedness. Respiratory: No deficits noted. GI: Pt is actively vomiting clear fluid, undigested food. : No deficits noted. EENT: No deficits noted. Derm: Skin is diaphoretic, Skin is pale. Musculoskeletal: No deficits noted. 20:49 General: Appears uncomfortable, ill, Behavior is cooperative, flat. Pain: Denies pain. kr3 Neuro: No deficits noted. Cardiovascular: Patient's skin is warm and dry. Respiratory: Airway is patent Respiratory effort is even, unlabored, Respiratory pattern is regular, symmetrical. GI: Reports nausea. : No signs and/or symptoms were reported regarding the genitourinary system. EENT: No deficits noted. Derm: Skin is dry, Skin is pale. Musculoskeletal: No deficits noted. Vital Signs: 14:58 BP 171 / 112; Pulse 57; Resp 19; Temp 97.8; Pulse Ox 98% ; Weight 98.43 kg; Height 5 ap3 ft. 9 in. (175.26 cm); 15:00 BP 181 / 105; Pulse 51; Pulse Ox 98% on R/A; ko1 16:00 BP 165 / 99; Pulse 47; Pulse Ox 98% ; ko1 17:00 BP 156 / 98; Pulse 50; Pulse Ox 100% ; ko1 18:00 BP 171 / 100; Pulse 50; Pulse Ox 98% ; ko1 19:00 BP 163 / 107; Pulse 56; Resp 17; Pulse Ox 99% ; kr3 21:06 BP 130 / 90; Pulse 48; Resp 16; Pulse Ox 96% on R/A; kr3 14:58 Body Mass Index 32.04 (98.43 kg, 175.26 cm) ap3 NIH Stroke Scale Scores: 15:05 NIHSS Score: 0 snw ED Course: 14:45 Patient arrived in ED. rg4 14:56 Keena Viveros FNP-C [facility] snw 14:57 Omar Ngo MD is Attending Physician. snw 15:00 Triage completed. ap3 15:01 Arm band placed on left wrist. ap3 15:08 Kianna Cruz, RN is Primary Nurse. ko1 15:15 Basic Metabolic Panel Sent. ko1 15:15 CBC with Diff Sent. ko1 15:15 Hepatic Function Sent. ko1 15:15 High Sensitivity Troponin Sent. ko1 15:15 Magnesium Sent. ko1 15:15 Protime (+inr) Sent. ko1 15:15 Ptt, Activated Sent. ko1 15:22 CT Stroke Brain w/o Contrast In Process Unspecified. EDMS 15:25 Initial lab(s) drawn, by me, sent to lab. Inserted saline lock: 20 gauge in left em1 antecubital area, using aseptic technique. Blood collected. 15:37 COVID-19/FLU A+B/RSV Sent. ko1 16:03 Stroke CXR 1 View In Process Unspecified. EDMS 16:06 CT Head Angio In Process Unspecified. EDMS 16:06 CT Neck Angio In Process Unspecified. EDMS 16:46 Chris Graves MD is Hospitalizing Provider. snw 18:00 Patient has correct armband on for positive identification. Bed in low position. Call ko1 light in reach. Side rails up X 1. Client placed on continuous cardiac and pulse oximetry monitoring. NIBP monitoring applied. laboratory monitor on. 09/17 14:33 No provider procedures requiring assistance completed. Patient admitted, IV remains in db place. Administered Medications: 09/16 15:17 Drug: Phenergan (promethazine) 12.5 mg Route: IVP; Site: left antecubital; ko1 16:00 Follow up: Response: No adverse reaction; Nausea is decreased ko1 15:26 Drug: NS 0.9% 500 ml Route: IV; Rate: bolus; Site: left antecubital; ko1 15:48 Drug: Aspirin 81 mg Route: PO; ko1 19:03 Follow up: Response: No adverse reaction; No change in condition ko1 15:49 Drug: foLIC Acid 1 mg Route: IVPB; Site: left antecubital; ko1 19:03 Follow up: Response: No adverse reaction ko1 15:49 Drug: Acetylcysteine 600 mg Route: IV; Rate: calculated rate; Site: left antecubital; ko1 17:00 Follow up: Response: No adverse reaction ko1 Medication: 09/17 14:34 VIS not applicable for this client. db Outcome: 09/16 16:47 Decision to Hospitalize by Provider. snw 09/17 14:33 Admitted to Med/surg db Condition: stable Instructed on the need for admit. 14:35 Patient left the ED. db NIH Stroke Scale - NIH Stroke Score Date: 09/16/2022 Time: 15:05 Total Score = 0 1a. Level of Consciousness (LOC) - 0(Alert) 1b. Level of Consciousness (LOC) (Month \T\ Age) - 0(Both) 1c. LOC Commands (Open \T\ Closes Eyes/Continuous Improvement Manager) - 0(Both) 2. Best Gaze (Lateral Gaze Paresis) - 0(Normal) 3. Visual Field Loss - 0(No visual loss) 4. Facial Palsy - 0(Normal) 5a. Left Arm: Motor (10-second hold) - 0(No drift) 5b. Right Arm: Motor (10-second hold) - 0(No drift) 6a. Left Leg: Motor (5-second hold - always test supine) - 0(No drift) 6b. Right Leg: Motor (5-second hold - always test supine) - 0(No drift) 7. Limb Ataxia (finger/nose \T\ heel/sheth - test with eyes open) - 0(Absent) 8. Sensory Loss (pinprick arms/legs/face) - 0(Normal) 9. Best Language: Aphasia (description/naming/reading) - 0(No aphasia) 10. Dysarthria (speech clarity - read or repeat words) - 0(Normal) 11. Extinction and Inattention (visual/tactile/auditory/spatial/personal) - 0(No abnormality) Initials: snw Signatures: Dispatcher [employer] EDMS Keena Viveros, SPECIAL EDUCATION CLASSROOM AIDE-C SPECIAL EDUCATION CLASSROOM AIDE-Csnw Addy Palacios1 Donna Valladares4 Ewelina Muhammad RN RN holly3 Josiane Pereira, BURTON RN [id number] Kianna Cruz, RN RN ko1 Gabriela Ren, BURTON RN db Corrections: (The following items were deleted from the chart) 14:34 14:33 IV discontinued, db db
--- NOTE | 2022-09-16 16:47 | EDPHYS ---
Physician Documentation [facility] Name: Frederick Gallegos Age: 57 yrs Sex: Male : 1965 Arrival Date: 09/16/2022 Time: 14:45 Bed 16 Private MD: ED Physician Omar Ngo HPI: 09/16 15:16 This 57 yrs old Male presents to ER via Wheelchair with complaints of Dizziness, snw Vomiting. 15:16 The patient presents with dizziness, feeling faint. Onset: The symptoms/episode snw began/occurred suddenly, at 14:30. Context: occurred while the patient was bending over at work. Associated signs and symptoms: Pertinent positives: diaphoresis, nausea, vomiting. Severity of symptoms: At their worst the symptoms were incapacitating in the emergency department the symptoms are unchanged. Patient's baseline: Neuro: alert and fully oriented, Motor: no deficits, Ambulation: walks without assistance. The patient has not experienced similar symptoms in the past. Saw Dr. Sanchez, sees Dr. Caro for nonessential tremor, takes propranolol. Historical: - Allergies: 15:00 Bees; ap3 - PMHx: 15:00 Hypertension; nonessential tremors; ap3 - Immunization history:: Client reports having NOT received the Covid vaccine. - Social history:: Smoking status: Patient denies any tobacco usage or history of. ROS: 15:14 Constitutional: Negative for fever, chills, and weight loss, Eyes: Negative for injury, snw pain, redness, and discharge, ENT: Negative for injury, pain, and discharge, Neck: Negative for injury, pain, and swelling, Cardiovascular: Negative for chest pain, palpitations, and edema, Respiratory: Negative for shortness of breath, cough, wheezing, and pleuritic chest pain. 15:14 Back: Negative for injury and pain, : Negative for injury, bleeding, discharge, and swelling, MS/Extremity: Negative for injury and deformity, Skin: Negative for injury, rash, and discoloration. 15:14 Abdomen/GI: Positive for nausea and vomiting. 15:14 Neuro: Positive for dizziness. Exam: 15:04 Constitutional: This is a well developed, well nourished patient who is awake, alert, snw and in no acute distress. 15:04 Eyes: Pupils equal round and reactive to light, extra-ocular motions intact. Lids and lashes normal. Conjunctiva and sclera are non-icteric and not injected. Cornea within normal limits. Periorbital areas with no swelling, redness, or edema. ENT: Nares patent. No nasal discharge, no septal abnormalities noted. Tympanic membranes are normal and external auditory canals are clear. Oropharynx with no redness, swelling, or masses, exudates, or evidence of obstruction, uvula midline. Mucous membranes moist. Neck: Trachea midline, no thyromegaly or masses palpated, and no cervical lymphadenopathy. Supple, full range of motion without nuchal rigidity, or vertebral point tenderness. No Meningismus. Chest/axilla: Normal chest wall appearance and motion. Nontender with no deformity. No lesions are appreciated. Cardiovascular: Regular rate and rhythm with a normal S1 and S2. No gallops, murmurs, or rubs. Normal PMI, no JVD. No pulse deficits. Respiratory: Lungs have equal breath sounds bilaterally, clear to auscultation and percussion. No rales, rhonchi or wheezes noted. No increased work of breathing, no retractions or nasal flaring. 15:04 Head/face: Noted is diaphoresis. 15:04 Abdomen/GI: Inspection: abdomen appears normal, Bowel sounds: normal, in all quadrants, Palpation: abdomen is soft and non-tender, in all quadrants. Vital Signs: 14:58 BP 171 / 112; Pulse 57; Resp 19; Temp 97.8; Pulse Ox 98% ; Weight 98.43 kg; Height 5 ap3 ft. 9 in. (175.26 cm); 15:00 BP 181 / 105; Pulse 51; Pulse Ox 98% on R/A; ko1 16:00 BP 165 / 99; Pulse 47; Pulse Ox 98% ; ko1 17:00 BP 156 / 98; Pulse 50; Pulse Ox 100% ; ko1 18:00 BP 171 / 100; Pulse 50; Pulse Ox 98% ; ko1 19:00 BP 163 / 107; Pulse 56; Resp 17; Pulse Ox 99% ; kr3 21:06 BP 130 / 90; Pulse 48; Resp 16; Pulse Ox 96% on R/A; kr3 14:58 Body Mass Index 32.04 (98.43 kg, 175.26 cm) ap3 NIH Stroke Scale Scores: 15:05 NIHSS Score: 0 snw MDM: 14:57 Patient medically screened. snw 15:21 Data reviewed: vital signs, nurses notes. Data interpreted: Pulse oximetry: on room air snw is 98 %. Interpretation: normal. Special discussion: Based on the history and exam findings, there is no indication for further emergent testing or inpatient evaluation. ED course: pt brought in per coworkers who state his s/s started at 1430, pt pale, diaphoretic, dizzy in triage. 15:29 ED course: CT head with no acute findings per Dr. Bloom. snw 15:37 Counseling: I had a detailed discussion with the patient and/or guardian regarding: the snw historical points, exam findings, and any diagnostic results supporting the discharge/admit diagnosis. Physician consultation: Maikol Mathews MD was called at 15:37, was contacted at 15:37, regarding consult, patient's condition, as pt has NIH zero, nausea + vomiting, peripheral cause is most likely. Await CT angio head and neck and if no findings, hold TNK and work up with MRI, echo, etc. 12 15:03 Order name: Basic Metabolic Panel; Complete Time: 15:38 snw 09/16 15:03 Order name: CBC with Diff; Complete Time: 15:28 snw 09/16 15:03 Order name: Hepatic Function; Complete Time: 15:38 snw 08 15:03 Order name: High Sensitivity Troponin; Complete Time: 15:38 snw 08 15:03 Order name: Magnesium; Complete Time: 15:38 snw 08 15:03 Order name: Protime (+inr); Complete Time: 15:28 snw 08 15:03 Order name: Ptt, Activated; Complete Time: 15:28 snw 08 15:24 Order name: COVID-19/FLU A+B/RSV; Complete Time: 16:31 snw 09/16 15:26 Order name: Glucose, Ancillary Testing; Complete Time: 15:28 EDMS 08 16:52 Order name: UDS snw 09/16 16:52 Order name: ETOH Level; Complete Time: 18:05 snw 09/16 23:57 Order name: Troponin High Sensitivity; Complete Time: 07:53 EDMS 09/17 07:05 Order name: CBC with Automated Diff; Complete Time: 07:53 EDMS 12 07:30 Order name: Basic Metabolic Panel; Complete Time: 07:53 EDMS 09/16 15:03 Order name: CT Stroke Brain w/o Contrast; Complete Time: 15:38 snw 09/16 15:03 Order name: Stroke CXR 1 View; Complete Time: 16:14 snw 09/16 15:21 Order name: CT Head Angio; Complete Time: 16:31 snw 09/16 15:21 Order name: CT Neck Angio; Complete Time: 16:31 snw 09/17 07:30 Order name: Troponin High Sensitivity; Complete Time: 07:53 EDMS 09/17 07:30 Order name: Lipid Profile; Complete Time: 07:53 EDMS 09/17 07:30 Order name: T4 Free; Complete Time: 07:53 EDMS 09/17 07:30 Order name: Thyroid Stimulating Hormone; Complete Time: 07:53 EDMS 09/17 07:35 Order name: Hemoglobin A1c; Complete Time: 07:53 EDMS 09/17 08:36 Order name: US; Complete Time: 08:36 EDMS 09/17 09:41 Order name: MRI; Complete Time: 09:48 EDMS 09/17 10:23 Order name: MRI; Complete Time: 10:24 EDMS 09/16 15:03 Order name: EKG; Complete Time: 15:05 snw 08 15:03 Order name: Accucheck; Complete Time: 15:15 snw 09/16 15:03 Order name: Cardiac monitoring; Complete Time: 15:15 snw 09/16 15:03 Order name: EKG - Nurse/Tech; Complete Time: 15:15 snw 09/16 15:03 Order name: IV Saline Lock; Complete Time: 15:15 snw 09/16 15:03 Order name: Labs collected and sent; Complete Time: 15:15 snw 09/16 15:03 Order name: NPO; Complete Time: 15:15 snw 09/16 15:03 Order name: O2 Per Protocol; Complete Time: 15:15 snw 08 15:03 Order name: O2 Sat Monitoring; Complete Time: 15:15 snw 09/16 15:03 Order name: Stroke Swallow Screen; Complete Time: 18:01 snw EC:20 Rate is 52 beats/min. Rhythm is regular. T waves are Inverted in lead III. Clinical snw impression: Sinus bradycardia and poor R wave progression in leads V4-V6. Administered Medications: 15:17 Drug: Phenergan (promethazine) 12.5 mg Route: IVP; Site: left antecubital; ko1 16:00 Follow up: Response: No adverse reaction; Nausea is decreased ko1 15:26 Drug: NS 0.9% 500 ml Route: IV; Rate: bolus; Site: left antecubital; ko1 15:48 Drug: Aspirin 81 mg Route: PO; ko1 19:03 Follow up: Response: No adverse reaction; No change in condition ko1 15:49 Drug: foLIC Acid 1 mg Route: IVPB; Site: left antecubital; ko1 19:03 Follow up: Response: No adverse reaction ko1 15:49 Drug: Acetylcysteine 600 mg Route: IV; Rate: calculated rate; Site: left antecubital; ko1 17:00 Follow up: Response: No adverse reaction ko1 Disposition Summary: 09/16/22 16:47 Hospitalization Ordered Hospitalization Status: Observation snw Provider: Chris Graves snw Condition: Stable snw Problem: new snw Symptoms: have improved snw Bed/Room Type: Standard snw Location: [facility] ER HOLD(09/16/22 20:24) rv1 Room Assignment: ERHOLD-(09/16/22 20:24) rv1 Diagnosis - Other peripheral vertigo snw - Essential (primary) hypertension snw - Bradycardia, unspecified snw Forms: - Medication Reconciliation Form snw - SBAR form snw NIH Stroke Scale - NIH Stroke Score Date: 09/16/2022 Time: 15:05 Total Score = 0 1a. Level of Consciousness (LOC) - 0(Alert) 1b. Level of Consciousness (LOC) (Month \T\ Age) - 0(Both) 1c. LOC Commands (Open \T\ Closes Eyes/Gasfitter) - 0(Both) 2. Best Gaze (Lateral Gaze Paresis) - 0(Normal) 3. Visual Field Loss - 0(No visual loss) 4. Facial Palsy - 0(Normal) 5a. Left Arm: Motor (10-second hold) - 0(No drift) 5b. Right Arm: Motor (10-second hold) - 0(No drift) 6a. Left Leg: Motor (5-second hold - always test supine) - 0(No drift) 6b. Right Leg: Motor (5-second hold - always test supine) - 0(No drift) 7. Limb Ataxia (finger/nose \T\ heel/sheth - test with eyes open) - 0(Absent) 8. Sensory Loss (pinprick arms/legs/face) - 0(Normal) 9. Best Language: Aphasia (description/naming/reading) - 0(No aphasia) 10. Dysarthria (speech clarity - read or repeat words) - 0(Normal) 11. Extinction and Inattention (visual/tactile/auditory/spatial/personal) - 0(No abnormality) Initials: snw Addendum: 09/19/2022 19:09 Co-signature as Attending Physician, Omar Ngo MD. rn Signatures: Dispatcher [employer] EDMS Keena Viveros, EDGER AUTOMATIC-C EDGER AUTOMATIC-Csnw Omar Ngo MD MD rn Prokisch, Amanda RN RN holly3 Kianna Cruz RN RN ko1 Alexia Magallanes rv1 Corrections: (The following items were deleted from the chart) 09/16 20:24 16:47 Telemetry/MedSurg (observation) sn rv1 20:24 16:47 sn rv1
--- NOTE | 2022-09-16 19:58 | P.HP ---
Certification for Inpatient Patient admitted to: Observation With expected LOS: <2 Midnights Patient will require the following post-hospital care: None Practitioner: I am a practitioner with admitting privileges, knowledge of patient current condition, hospital course, and medical plan of care. Services: Services provided to patient in accordance with Admission requirements found in Title 42 Section 412.3 of the Code of Federal Regulations <Huang Taveras - Last Filed: 09/16/22 19:54> Patient History Date of Service: 09/16/22 History of Present Illness: 57-year-old male with history of hypertension, nonessential tremors presents to the emergency department for dizziness, near syncope. 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 He is brought to the emergency department for evaluation he had no focal neurological deficits his NIH is 0 labs were significant for creatinine of 1.65 GFR 48 B[address] of the head without contrast as well as CT head and neck angio are negative for acute findings chest x-ray shows mild interstitial pulmonary edema. Heart is normal size no displaced fractures. Patient still feeling unwell/dizzy. ED provider wishes to admit under observation for dizziness/near syncope/CVA rule out. - Past Medical/Surgical History -: Hypertension -: None essential tremor Psychosocial/ Personal History: Patient lives at home with his , works for [employer] - Family History Father -: Cancer Mother -: Cancer - Social History Smoking Status: Never smoker Alcohol use: No CD- Drugs: No Caffeine use: Yes Place of Residence: Home <Huang Taveras - Last Filed: 09/16/22 19:54> Date of Service: 09/16/22 <Chris Graves - Last Filed: 09/16/22 20:51> Allergies No Known Allergies Allergy (Verified 12/29/16 07:54) Home Medications: Primidone [Mysoline *] 50 mg PO BID 12/29/16 Propranolol [Inderal LA*] 80 mg PO DAILY 12/29/16 hydroCHLOROthiazide [Hydrochlorothiazide*] 12.5 mg PO DAILY 12/29/16 Review of Systems 10-point ROS is otherwise unremarkable Cardiovascular: Light Headedness Gastrointestinal: Vomiting Neurological: Other (Dizziness/vertigo) <uHang Taveras - Last Filed: 09/16/22 19:54> Physical Examination - Physical Exam General: Alert, In no apparent distress, Oriented x3 HEENT: Atraumatic, PERRLA, Mucous membr. moist/pink, EOMI, Sclerae nonicteric Neck: Supple, 2+ carotid pulse no bruit, No LAD, Without JVD or thyroid abnormality Respiratory: Clear to auscultation bilaterally, Normal air movement Cardiovascular: Regular rate/rhythm, Normal S1 S2 Gastrointestinal: Normal bowel sounds, No tenderness Musculoskeletal: No tenderness Integumentary: No rashes Neurological: Normal speech, Normal strength at 5/5 x4 extr, Normal tone, Normal affect, Other (NIH 0) - Studies Laboratory Data (last 24 hrs) 09/16/22 15:10: PT 10.6, INR 0.96, APTT 28.7 09/16/22 15:10: WBC 7.10, Hgb 15.6, Hct 47.9, Plt Count 292 09/16/22 15:10: Sodium 138, Potassium 3.8, BUN 24 H, Creatinine 1.65 H, Glucose 136 H, Magnesium 2.2, Total Bilirubin 0.4, AST 18, ALT 26, Alkaline Phosphatase 71 <Huang Taveras - Last Filed: 09/16/22 19:54> - Studies Laboratory Data (last 24 hrs) 09/16/22 15:10: PT 10.6, INR 0.96, APTT 28.7 09/16/22 15:10: WBC 7.10, Hgb 15.6, Hct 47.9, Plt Count 292 09/16/22 15:10: Sodium 138, Potassium 3.8, BUN 24 H, Creatinine 1.65 H, Glucose 136 H, Magnesium 2.2, Total Bilirubin 0.4, AST 18, ALT 26, Alkaline Phosphatase 71 <Chris Graves - Last Filed: 09/16/22 20:51> Assessment and Plan - Plan Assessment: Dizziness, near syncope-rule out CVA TERESSA Hyperglycemia Hypertension Plan: Dizziness, near syncope-rule out CVA: NIH is 0, patient still feeling dizzy especially with movement of head/standing. Will obtain orthostatics, MRI, echo, carotid Dopplers. PT consult in place. Consult in place for neurology-Dr. Caro TERESSA: Continue IVF overnight, Recheck BMP in the morning. Hyperglycemia: A1c in the morning. Hypertension: Continue home meds. DVT PPX: Lovenox Code status: Full Discharge Plan: Home Plan to discharge in: 24 Hours - Advance Directives Does patient have a Living Will: No Does patient have a Durable POA for Healthcare: No - Code Status/Comfort Care Code Status Assessed: Yes (Full code) Critical Care: No Time Spent Managing Pts Care (In Minutes): 55 <Huang Taveras - Last Filed: 09/16/22 19:54> Physician Review: Patient Assessed, Agree with Above Assessment and Plan <Chris Graves - Last Filed: 09/16/22 20:51>
[2022-09-16] MEDS ORDERED: MECLIZINE HCL 12.5 MG TAB PO PRN (22:40)
[2022-09-16] MEDS ORDERED: ATORVASTATIN 40 MG TAB PO SCH (22:40)
[2022-09-16] MEDS: Ringers Lactate 1,000 ML IV SCH (22:40)
[2022-09-16] MEDS ORDERED: ONDANSETRON 4 MG/2 ML VIAL IV PRN (22:40)
[2022-09-16] MEDS ORDERED: ACETAMINOPHEN 500 MG TAB PO PRN (22:40)
[2022-09-16] MEDS ORDERED: Ringers Lactate 1,000 ML IV ONE (23:29)
[2022-09-16] MEDS ORDERED: ATORVASTATIN 20 MG TAB ONE (23:29)
[2022-09-17 02:56] VITALS: O2SAT 96; BMI 32.1
[2022-09-17 07:03] LABS: Absolute Lymphocytes (CBC) 1.3 K/uL (0.7-4.9); Hematocrit 44.8 % (39.6-49.0); Lymphocytes % 20.7 % (15.3-44.8); MCV 85.7 fL (80-100); MPV 7.5 fL (7.6-11.3); RBC Red Blood Cell Count 5.23 M/uL (4.33-5.43)
[2022-09-17 07:30] LABS: Potassium 3.8 mmol/L (3.5-5.1); Thyroid Stimulating Hormone 2.11 uIU/mL (0.358-3.740); Troponin High Sensitivity 5.6 pg/mL (<58.9)
[2022-09-17 07:33] VITALS: TEMP 98.6
--- NOTE | 2022-09-17 08:35 | RAD REPORT ---
EXAM DESCRIPTION: US - CP - 09/17/2022 1:18 am CLINICAL HISTORY: near syncope, dizziness, CVA R/O Headache, drowsiness COMPARISON: Neck Angio dated 09/16/2022 TECHNIQUE: Real-time sonographic evaluation of both carotid systems was performed. Doppler interroga tion was performed with waveform tracing bilaterally. FINDINGS: Normal high resistance waveforms are noted in both external carotid arteries. The common c arotid arteries and internal carotid arteries show normal low resistance waveforms. Mild soft plaque is seen in both carotid bulbs. Peak systolic and end diastolic velocity values and t he ICA/CCA ratios are in the non-hemodynamically significant range. Right vertebral artery is not well visualized. Normal flow is seen left vertebral artery. IMPRESSION: Mild soft plaque is noted in both carotid bulbs. No evidence of a hemodynamically significant stenosis.
[2022-09-17] MEDS: Ringers Lactate 1,000 ML IV SCH (08:40)
[2022-09-17] MEDS ORDERED: FOLIC ACID 1 MG TABLET PO SCH (09:00)
[2022-09-17] MEDS ORDERED: ASPIRIN EC 81 MG TAB PO SCH (09:00)
--- NOTE | 2022-09-17 09:41 | RAD REPORT ---
EXAM DESCRIPTION: MRI - Brain Wo Cont - 09/17/2022 8:26 am CLINICAL HISTORY: near syncope, dizziness, CVA Headache, drowsiness, CVA symptomology COMPARISON: MRA Head Wo Cont dated 09/17/2022 TECHNIQUE: Multi-sequence, multiplanar MR imaging of the brain was performed without contrast. FINDINGS: No intracranial hemorrhage, hydrocephalus or extra-axial fluid collections.Moderate T2 and FLAIR hyperintensity in the periventricular deep white matter compatible with chronic microvascular ischemia. No edema or shift of midline structures. No findings to suspect brain mass. DWI is negative for acute CVA. Midline structures are normally formed. Mastoid air cells and paranasal sinuses are clear. IMPRESSION: Negative for acute CVA or other acute intracranial process.
[2022-09-17] MEDS ORDERED: FOLIC ACID 1 MG TABLET ONE (10:20)
[2022-09-17] MEDS ORDERED: ASPIRIN EC 81 MG TAB PO ONE (10:20)
[2022-09-17] MEDS ORDERED: Ringers Lactate 1,000 ML IV ONE (10:20)
--- NOTE | 2022-09-17 10:22 | RAD REPORT ---
EXAM DESCRIPTION: MRI - MRA Head Wo Cont - 09/17/2022 8:26 am CLINICAL HISTORY: near syncope, dizziness, CVA CVA COMPARISON: Head angio dated 09/16/2022 FINDINGS: 3D noncontrast [id number] MR angiography of the [place] was performed. No aneurysm, flow-limiting stenosis or vascular malformation is seen. Forward flow seen in codominant vertebral arteries. The visualized dural venous sinuses appear patent. IMPRESSION: No significant flow abnormality of the [place] is identified.
[2022-09-17] MEDS ORDERED: MECLIZINE HCL 12.5 MG TAB ONE (12:51)
--- NOTE | 2022-09-17 13:42 | P.DS ---
Admission Date: 09/16/22 Discharge Date: 09/17/22 Disposition: ROUTINE DISCHARGE Discharge Condition: GOOD Reason for Admission: Vertigo Consultations: 1. Neurology Hospital Course: DIAGNOSES: # Suspect Benign Paroxysmal Positional Vertigo # KDIGO Stage I Acute Kidney Injury (improved) # Hypertension # Dyslipidemia HOSPITAL COURSE: Mr. Frederick Gallegos is a pleasant 57 year old male with a past medical history significant for hypertension who was admitted to the [facility] on 09/16/2022 for dizziness. He was admitted to the Medicine service to evaluate for potential cerebrovascular accident. Upon further evaluation, his NIHSS stroke scale was 0. He did have horizontal rightbeating nystagmus, which was positional in nature. His CT head revealed, "no acute intracranial abnormality." His CT head angiogram revealed, "no significant flow abnormality is detected." His CT neck angiogram revealed, "mild soft plaquing in both carotid bulbs without a significant stenosis evident." His carotid Doppler revealed, "mild soft plaque is noted in both carotid bulbs. No evidence of a hemodynamically significant stenosis." His MRI brain revealed, "negative for acute CVA or other acute intracranial process." His MR angiogram brain revealed, "no significant flow abnormality of the [place] is identified." His transthoracic echocardiogram revealed, "1. normal left ventricular ejection fraction 60-65% 2. normal wall motion 3. normal diastolic dysfunction 4. mild mitral regurgitation 5. mild tricuspid regurgitation." PT/OT were consulted and he underwent Emiliana maneuvers. Over the course of his hospitalization, his vertigo improved significantly. Today, I was able to ambulate with him around the nursing station, with minimal to no dizziness. He stated that he felt well and would like to be discharged home. We have provided him with an informational handout on how to perform the Emiliana maneuver at home. 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 On 09/17/2022, he was seen on morning rounds and deemed medically stable for discharge. He was discharged with instructions to schedule follow-up appointments with his PCP (Dr. Sanchez) and with his Neurologist (Dr. Caro). He was provided prescriptions for meclizine and atorvastatin. He and his family members were given the opportunity to ask questions and reported no further questions. Furthermore, all questions were answered to the best of my ability. A copy of this discharge summary will be sent to the above providers to facilitate continuity of care. Today, I personally spent 25 minutes on his case, of which greater than 50% of the time was spent in patient education, counseling, and coordination of care as described above. NIH Stroke Scale 1a. Level of consciousness: 0 - Alert; keenly responsive 1b. LOC questions: 0 - Both questions right 1c. LOC commands: 0 - Performs both tasks 2. Best Gaze: 0 - Normal 3. Visual: 0 - No visual loss 4. Facial Palsy: 0 - Normal symmetry 5a. Motor left arm: 0 - No drift for 10 seconds 5b. Motor right arm: 0 - No drift for 10 seconds 6a. Motor left le - No drift for 5 seconds 6b. Motor right le - No drift for 5 seconds 7. Limb ataxia: 0 - No ataxia 8. Sensory: 0 - Normal; no sensory loss 9. Best Language: 0 - Normal; no aphasia 10. Dysarthria: 0 - Normal 11. Extinction and Inattention: 0 - No abnormality 12. Distal motor function: 0 - No abnormality Total Score: 0 Vital Signs/Physical Exam: Temp Pulse Resp BP Pulse Ox 98.6 F 58 17 113/82 99 09/17/22 07:31 09/17/22 07:31 09/17/22 07:31 09/17/22 07:31 09/17/22 07:31 General: Alert, In no apparent distress, Oriented x3 HEENT: Atraumatic, PERRLA, Mucous membr. moist/pink, EOMI, Sclerae nonicteric Neck: Supple, JVD not distended Respiratory: Clear to auscultation bilaterally, Normal air movement Cardiovascular: No edema, Regular rate/rhythm, Normal S1 S2, No gallops, No rubs, No murmurs Capillary refill: <2 Seconds Gastrointestinal: Normal bowel sounds, Soft and benign, Non-distended, No tenderness, No rebound, No guarding Musculoskeletal: No clubbing Integumentary: No rashes Neurological: Normal gait, Normal speech, Normal strength at 5/5 x4 extr, Normal tone, Sensation intact, Cranial nerves 3-12 intact, Normal affect, Other ([place]- [place] sign positive. Mild right-beating nystagmus when he looks to the left.) Laboratory Data at Discharge: WBC 6.50 K/uL (4.3-10.9) 09/17/22 06:34 Hgb 14.9 g/dL (13.6-17.9) 09/17/22 06:34 Hct 44.8 % (39.6-49.0) 09/17/22 06:34 Plt Count 249 K/uL (152-406) 09/17/22 06:34 PT 10.6 SECONDS (9.5-12.5) 09/16/22 15:10 INR 0.96 09/16/22 15:10 APTT 28.7 SECONDS (24.3-36.9) 09/16/22 15:10 Sodium 138 mmol/L (136-145) 09/17/22 06:34 Potassium 3.8 mmol/L (3.5-5.1) 09/17/22 06:34 BUN 22 mg/dL (7-18) H 09/17/22 06:34 Creatinine 1.45 mg/dL (0.70-1.30) H 09/17/22 06:34 Glucose 92 mg/dL (74-106) 09/17/22 06:34 Magnesium 2.2 mg/dL (1.6-2.4) 09/16/22 15:10 Total Bilirubin 0.4 mg/dL (0.2-1.0) 09/16/22 15:10 AST 18 U/L (15-37) 09/16/22 15:10 ALT 26 U/L (16-61) 09/16/22 15:10 Alkaline Phosphatase 71 U/L (45-117) 09/16/22 15:10 Triglycerides 88 mg/dL (<150) 09/17/22 06:34 Cholesterol 235 mg/dL (<200) H 09/17/22 06:34 HDL Cholesterol 46 mg/dL (40-60) 09/17/22 06:34 Cholesterol/HDL Ratio 5.11 09/17/22 06:34 Home Medications: RX: Primidone [Mysoline *] 50 - 150 mg PO BID 12/29/16 RX: Propranolol [Inderal LA*] 80 mg PO DAILY 12/29/16 RX: Atorvastatin Calcium [Lipitor] 40 mg PO BEDTIME #30 tab 09/17/22 RX: Meclizine HCl 25 mg PO Q6H PRN #30 tab 09/17/22 New Medications: RX: Atorvastatin Calcium [Lipitor] 40 mg PO BEDTIME #30 tab RX: Meclizine HCl 25 mg PO Q6H PRN #30 tab PRN Reason: Dizziness Physician Discharge Instructions: 1. Please call and schedule a follow-up appointment with your PCP (Dr. Sanchez) in 3-5 days 2. Please call and schedule a follow-up appointment with your Neurologist (Dr. Caro) in 3-5 days Diet: AHA Activity: Per OT Followup: Félix Sanchez, [Primary Care Provider] - Steve Caro MD [ACTIVE - CAN ADMIT] - Time spent managing pt's care (in minutes): 25
--- NOTE | 2022-09-17 13:58 | ECHO ---
HEIGHT: 5 ft 9 in WEIGHT: 218 lb 0 oz DATE OF STUDY: 09/17/[address]: Huang Taveras NP 2-DIMENSIONAL: YES M.MODE: YES DOPPLER: YES COLOR FLOW: YES TDS: PORTABLE: YES DEFINITY: BUBBLE STUDY: DIAGNOSIS: NEAR SYNCOPE CARDIAC HISTORY: CATHERIZATION: SURGERY: PROSTHETIC VALVE: PACEMAKER: MEASUREMENTS (cm) DIASTOLIC (NORMALS) SYSTOLIC (NORMALS) IVSd 1.1 (0.6-1.2) LA Diam 3.7 (1.9-4.0) LVEF 60-65% LVIDd 4.8 (3.5-5.7) LVIDs 2.6 (2.0-3.5) %FS 45% LVPWd 1.2 (0.6-1.2) Ao Diam 3.6 (2.0-3.7) 2 DIMENSIONAL ASSESSMENT: RIGHT ATRIUM: NORMAL LEFT ATRIUM: NORMAL RIGHT VENTRICLE: NORMAL LEFT VENTRICLE: NORMAL TRICUSPID VALVE: MILD TRICUSPID REGURGITAITON MITRAL VALVE: MILD MITRAL REGURGITATION PULMONIC VALVE: NORMAL AORTIC VALVE: NORMAL PERICARDIAL EFFUSION: NONE AORTIC ROOT: NORMAL LEFT VENTRICULAR WALL MOTION: NORMAL DOPPLER/COLOR FLOW: SEE BELOW COMMENTS: 1. NORMAL LEFT VENTRICULAR EJECTION FRACTION 60-65% 2. NORMAL WALL MOTION 3. NORMAL DIASTOLIC DYSFUNCTION 4. MILD MITRAL REGURGITATION 5. MILD TRICUSPID REGURGITATION TECHNOLOGIST: HEIDI PALOMINO
[2022-09-17 14:05] VITALS: BP 153/80
--- NOTE | 2022-09-17 17:39 | EKG ---
Test Date: 2022-09-16 Test Time: 15:10:04 Breaker Oiler: MEASUREMENT RESULTS: Intervals: Rate: 52 NH: 172 QRSD: 90 QT: 454 QTc: 422 [place]: P: 18 NH: 172 QRS: 1 T: -7 INTERPRETIVE STATEMENTS: Sinus bradycardia Otherwise normal ECG Compared to ECG 02/06/2018 12:08:13 Sinus arrhythmia no longer present Electronically Signed On 09-17-22 17:37:44 MICROBIOLOGY MANAGER by Jacob Haley
== END 2022-09-17 14:18 | disposition home or self-care (01) ==
LOC: ER 14:45 → ERHOLD 19:25
PROVIDERS: ADMIT Internal Medicine; ATTEND Internal Medicine
DX: R42 Dizziness and giddiness (principal); N17.9 Acute kidney failure, unspecified; I10 Essential (primary) hypertension; E78.5 Hyperlipidemia, unspecified; Z20.822 Contact with and (suspected) exposure to COVID-19
CPT/HCPCS: 93005; 93306; 85025 ×2; 80048 ×2; 36415; 80320; 83735; 85610; 80061; 82947; 80076; 85730; 84443; 83036; 84484 ×3; 84439; 0241U; 70496; 70498; 70450; 71045; 93880; 70551; 70544; 97110; 97165; 96375; 96374; 99285; Q9967; J2550; J8597; J0132; J7120 ×2; J7040; G0378